=== PATIENT | female | born 1975 | race American Indian/Alaskan Native ===

== ENCOUNTER 2021-02-27 09:44 | Outpatient (CLI) | payer OTHER ==
--- NOTE | 2021-02-27 10:48 | XRay Report ---
Lumbar spine series INDICATION: Low back pain FINDINGS: Alignment appears normal. Mild facet degenerative change. No compression fractures seen. Sa qi and sacroiliac joints appear normal. IMPRESSION: No acute findings. Signer Name: Dhruv Monreal MD Signed: 02/27/2021 10:43 AM Workstation Name: [id number]
== END 2021-02-27 09:45 | disposition home or self-care (01) ==
LOC: XRAY 09:44
PROVIDERS: ATTEND Orthopaedic Surgery
DX: M47.816 Spondylosis without myelopathy or radiculopathy, lumbar region (principal)
CPT/HCPCS: 72110